=== PATIENT | male | born 1960 | race Caucasian/White ===

== ENCOUNTER → 2016-11-08 | Outpatient (CLI) | payer BC ==
[~2016-11-08] MED LIST: ASCO10007 PO; CHOL100055 PO; CYAN10009 PO; FLUT16SP EA NOSTRIL; OXYC1TAB8 PO; PRED5TAB PO
== END ==
LOC: IMA.BED 08:00
PROVIDERS: ATTEND Radiology Diagnostic Radiology
DX: Z53.8 Procedure and treatment not carried out for other reasons (principal)

== ENCOUNTER → 2016-12-03 | Outpatient (CLI) | payer BC ==
[~2016-12-03] MED LIST changes: -OXYC1TAB8 PO
--- NOTE | 2016-12-03 15:22 | DI ---
Indication: ITS.REASON: R91.8 Other nonspecific abnormal finding of lung field PROCEDURE: CT CHEST/ABDOMEN/PELVIS W/O: Encounter: Subsequent Comparison: CT chest dated November 05, [address] abdomen/pelvis dated October 24, 2016 Technique: Axial CT images were performed through the chest, abdomen and pelvis without intravenous contrast. Coronal and sagittal two-dimensional reformats. Automated Exposure Control and Iterative Reconstruction dose reducing techniques were utilized. Findings: Chest: Multifocal pulmonary nodules are again seen and unchanged. Several of these appear semisolid with airways traversing through the center of the nodules. No measurable change in the nodule sizes. No new or enlarging nodules. No pneumonia, pleural effusion or pneumothorax. The central airways are patent. No axillary or mediastinal adenopathy by CT criteria. Stable small paratracheal nodes. Heart size is normal. No pericardial effusion. Abdomen/pelvis: Diffuse fatty infiltration of the liver. Rim calcified gallbladder again noted. The spleen, pancreas and adrenal glands are within normal limits. The kidneys are unchanged. Bladder is normal. Prostate and rectum are within normal limits. No free fluid. No evidence of a bowel obstruction. No mesenteric, retroperitoneal or pelvic adenopathy. Bone windows are unchanged. Impression: Stable exam with numerous randomly distributed groundglass and semisolid nodules throughout both lungs. .
== END ==
LOC: IMA 12:32
PROVIDERS: ATTEND Internal Medicine Hematology & Oncology
DX: R91.8 Other nonspecific abnormal finding of lung field (principal); K76.0 Fatty (change of) liver, not elsewhere classified

== ENCOUNTER 2016-12-15 08:44 | Day surgery (SDC) | payer BC ==
--- NOTE | 2016-11-23 15:37 | NUR ---
PMH, allergies, meds reviewed and documented. Preop and DOS instructions given. Patient has been given CHG soap with instructions for use preop.
[~2016-12-15] VITALS: Ht 182.9 cm; Wt 113.5 kg
[2016-12-15] VITALS (34 sets, daily range): BP systolic 111–172; BP diastolic 56–98; PULSE 56–89; RESP 8–19; TEMP 96.8–97.9; O2SAT 90–98; Ht 182.9 cm; Wt 113.5 kg
[~2016-12-15 08:44] MED LIST changes: +LIDOCAINE 1% (10mg/ml) 2ml SDV INJ ONE; +LR 1,000 ML IV SCH
--- OUTSIDE RECORDS SUMMARY | 2016-12-15 08:48 | XMS REPORT | Continuity of Care Document ---
Author Author [facility] Organization [facility] Address Unknown Phone Unavailable Support Name Relationship Address Phone JAN HARRIS MD Caregiver [address] [place] [id number] Unavailable MILENA COHN Next Of Kin [address] [place], [place] [phone] Insurance Providers Guarantor Anatoliy Cohn Address [address] [place] [address] Email [email or web address] Payer [facility] Policy Number [id number] Subscriber's Name Anatoliy Cohn Relationship 18 Self Group Number [id number] Chief Complaint and Reason for Visit Chief Complaint Flank Pain Reason for Visit [id number] Problems Past Problems Medical Problem Onset Date Left nephrolithiasis Unknown Pulmonary nodules Unknown Medications Current Home Medications Medication Dose Units Route Directions Days Qty Instructions Start Date Acetaminophen/Hydrocodone Bitart ([place] 10-325 Tablet) 10-325 Tablet 1 Tab Oral Every 4 Hours as needed for Pain 30 Tablet 10/24/16 Ascorbic Acid (Vitamin C) 1,000 Mg Tablet 2,000 Mg Oral Daily Cholecalciferol (Vitamin D3) (Vitamin D) 1,000 Unit Capsule 1,000 Unit Oral Daily 10/24/16 Cyanocobalamin (Vitamin B-12) (Vitamin B-12) 1,000 Mcg Tablet 1,000 Mcg Oral Daily 10/24/16 D-Methorphan/Acetamin/Doxylamn (Night Time Cold & Flu Liquid) 237 Ml Liquid 1 Dose Oral Bedtime as needed for Cold Symptoms 10/24/16 Prednisone 5 Mg Tablet 5 Mg Oral Daily as needed for Gout Pain Tamsulosin Hcl (Flomax) 0.4 Mg Capsule 0.4 Mg Oral Bedtime 30 Capsule Take 1 capsule, by mouth, one time a day at BEDTIME. 10/24/16 Social History Social History Problem Response Recorded Date/Time Onset Date Status Hx Alcohol Use No 10/24/2016 6:40am Not Applicable Not Applicable Query Response Start Date Stop Date Smoking Status Former smoker Hospital Discharge Instructions No hospital discharge instructions. Plan of Care Discharge Date 10/24/16 10:47am Disposition 01 DISCHARGED HOME, SELF-CARE Condition at Discharge Improved Prescriptions See Medication Section Functional Status No functional status results. Allergies, Adverse Reactions, Alerts Allergen Type Severity Reaction Status Last Updated Penicillin Allergy Unknown Active 10/24/16 Immunizations No immunization records. Vital Signs Acute Vital Signs Vital Response Date/Time Temperature (Fahrenheit) 97.6 deg F (96.8 - 99.1) 10/24/2016 10:47am Temperature (Calculated Celsius) 36.99947 degrees C (36.0 - 37.3) 10/24/2016 10:47am Pulse Rate (adult) 59 bpm (60 - 100) 10/24/2016 10:47am Respiratory Rate 18 breaths/min (10 - 20) 10/24/2016 10:47am O2 Sat by Pulse Oximetry 96 % (90 - 100) 10/24/2016 10:47am Blood Pressure 156/76 mm Hg 10/24/2016 10:47am Height (Feet) 5 feet 10/24/2016 6:32am Height (Inches) 11.00 inches 10/24/2016 6:32am Weight (Kilograms) 111.700 kg 10/24/2016 6:32am Body Mass Index (BMI) 34.0 10/24/2016 6:32am Results Laboratory Results Test Name Result Units Flags Reference Collection Date/Time Result Date/ Time Comments White Blood Count 10.3 T/MM3 4.5-11.0 10/24/2016 6:43am 10/24/2016 6: 57am Red Blood Count 5.25 M/MM3 4.50-5.90 10/24/2016 6:43am 10/24/2016 6: 57am Hemoglobin 15.8 GM/DL 13.5-17.5 10/24/2016 6:43am 10/24/2016 6:57am Hematocrit 45.8 % 41-53 10/24/2016 6:43am 10/24/2016 6:57am Mean Corpuscular Volume 87.2 UM3 80-100 10/24/2016 6:43am 10/24/2016 6: 57am Mean Corpuscular Hemoglobin 30.1 UUG 26-34 10/24/2016 6:43am 2016 6:57am Mean Corpuscular Hemoglobin Concent 34.5 GM/DL 31-37 10/24/2016 6:43am 10/24/2016 6:57am RDW Standard Deviation 42.5 FL 36.9-50.2 10/24/2016 6:43am 10/24/2016 6 :57am Platelet Count 220 T/MM3 130-400 10/24/2016 6:43am 10/24/2016 6:57am Mean Platelet Volume 10.4 UM3 9.4-12.4 10/24/2016 6:43am 10/24/2016 6: 57am Neutrophils (%) (Auto) 52.3 % 33-66 10/24/2016 6:43am 10/24/2016 6: 57am Lymphocytes (%) (Auto) 33.4 % 23-45 10/24/2016 6:43am 10/24/2016 6: 57am Monocytes (%) (Auto) 8.0 % 0-9.0 10/24/2016 6:43am 10/24/2016 6:57am Eosinophils (%) (Auto) 4.5 % H 0-4 10/24/2016 6:43am 10/24/2016 6:57am Basophils (%) (Auto) 0.4 % 0-2 10/24/2016 6:43am 10/24/2016 6:57am Immature Granulocyte % (Auto) 1.4 % H 0.0-0.5 10/24/2016 6:43am 2016 6:57am Absolute Neutrophils (auto) 5.4 T/MM3 1.8-7.7 10/24/2016 6:43am 2016 6:57am Absolute Lymphocytes (auto) 3.4 T/MM3 1-4.8 10/24/2016 6:43am 2016 6:57am Absolute Monocytes (auto) 0.8 T/MM3 0-0.8 10/24/2016 6:43am 10/24/2016 6:57am Absolute Eosinophils (auto) 0.5 T/MM3 0-0.5 10/24/2016 6:43am 2016 6:57am Absolute Basophils (auto) 0.0 T/MM3 0-0.2 10/24/2016 6:43am 10/24/2016 6:57am Absolute Immature Granulocyte (auto 0.14 T/MM3 H 0.00-0.03 10/24/2016 6: 43am 10/24/2016 6:57am Icterus Index < 2 0-7 10/24/2016 6:43am 10/24/2016 7:02am Chemistry Specimen Hemolysis < 15 0-25 10/24/2016 6:43am 10/24/2016 7 :02am 0-25: Specimen Exhibited No Hemolysis. Turbidity < 20 0-20 10/24/2016 6:43am 10/24/2016 7:02am Sodium Level 139 MEQ/L 134-144 10/24/2016 6:43am 10/24/2016 7:02am Potassium Level 4.1 MEQ/L 3.6-5 10/24/2016 6:43am 10/24/2016 7:02am Chloride Level 105 MEQ/L 98-107 10/24/2016 6:43am 10/24/2016 7:02am Carbon Dioxide Level 24 MEQ/L 22-30 10/24/2016 6:43am 10/24/2016 7: 02am Anion Gap 10 MEQ/L 5-15 10/24/2016 6:43am 10/24/2016 7:02am Blood Urea Nitrogen 22.0 MG/DL H 9-20 10/24/2016 6:43am 10/24/2016 7: 02am Creatinine 1.4 MG/DL 0.8-1.5 10/24/2016 6:43am 10/24/2016 7:02am BUN/Creatinine Ratio 16 RATIO 6-10/24/2016 6:43am 10/24/2016 7:02am Glomerular Filtration Rate Calc 53 10/24/2016 6:43am 10/24/2016 7: 02am Glucose Level 132 MG/DL H 75-110 10/24/2016 6:43am 10/24/2016 7:02am Calculated Osmolality 273 MOSM/KG 261-280 10/24/2016 6:43am 10/24/2016 7:02am Calcium Level 8.7 MG/DL 8.4-10.2 10/24/2016 6:43am 10/24/2016 7:02am Total Bilirubin 0.80 MG/DL 0.20-1.30 10/24/2016 6:43am 10/24/2016 7: 02am Alkaline Phosphatase 90 U/L 38-126 10/24/2016 6:43am 10/24/2016 7:02am Total Protein 7.2 G/DL 6.3-8.2 10/24/2016 6:43am 10/24/2016 7:02am Albumin 4.0 G/DL 3.5-5.0 10/24/2016 6:43am 10/24/2016 7:02am Globulin 3.2 G/DL 2.4-3.6 10/24/2016 6:43am 10/24/2016 7:02am Albumin/Globulin Ratio 1.3 RATIO 1.1-2.2 10/24/2016 6:43am 10/24/2016 7 :02am Aspartate Amino Transf (AST/SGOT) 35 U/L 17-59 10/24/2016 6:43am 2016 7:02am Alanine Aminotransferase (ALT/SGPT) 71 U/L 21-72 10/24/2016 6:43am 7:02am Lipase 89 U/L 23-300 10/24/2016 6:43am 10/24/2016 7:02am Urine Collection Type VOIDED-NOT CC-MIDSTR 10/24/2016 7:142016 7:24am Urine Color YELLOW YELLOW 10/24/2016 7:14am 10/24/2016 7:24am Urine Turbidity CLEAR CLEAR 10/24/2016 7:1410/24/2016 7:24am Urine Specific [place] >=1.030 H 1.015-1.025 10/24/2016 7:142016 7:24am Urine pH 5.0 5.0-8.0 10/24/2016 7:14am 10/24/2016 7:24am Urine Leukocyte Esterase NEGATIVE NEGATIVE 10/24/2016 7:14am 2016 7:24am Urine Nitrite NEGATIVE NEGATIVE 10/24/2016 7:14am 10/24/2016 7:24am Urine Protein TRACE A NEGATIVE 10/24/2016 7:14am 10/24/2016 7:24am Urine Glucose (UA) NEGATIVE NEGATIVE 10/24/2016 7:14am 10/24/2016 7: 24am Urine Ketones NEGATIVE NEGATIVE 10/24/2016 7:14am 10/24/2016 7:24am Urine Urobilinogen 0.2 EU/DL NORMAL 10/24/2016 7:14am 10/24/2016 7: 24am Urine Bilirubin NEGATIVE NEGATIVE 10/24/2016 7:14am 10/24/2016 7: 24am Urine Blood NEGATIVE NEGATIVE 10/24/2016 7:14am 10/24/2016 7:24am Urinalysis Comment MICROSCOPIC NOT IND. 10/24/2016 7:14am 2016 7:24am Name: ANATOLIY COHN Unit #: [id number] : 1960 Sex: M Admit Date: Loc / Svc: ED Discharge Date: DIAGNOSTIC IMAGING REPORT Report #: [id number] [facility] SELMA Venegas Indication: ITS.REASON: flank pain left PROCEDURE: CT ABD/PELVIS W/O CONTRAST: Encounter: Initial Comparison: None Technique: Axial CT images were performed through the abdomen and pelvis without intravenous contrast. Coronal and sagittal two-dimensional reformats. Automated Exposure Control and Iterative Reconstruction dose reducing techniques were utilized. Findings: Irregular nodules seen in both lower lobes, right middle lobe and lingula. Liver is diffusely severely fatty infiltrated. Wall calcifications in the gallbladder. The spleen, pancreas and adrenal glands are within normal limits. Right kidney is normal. Left kidney shows mild hydronephrosis and hydroureter due to an obstructing 3 mm stone in the intramural portion of the ureter at the bladder. Bladder is totally decompressed. Prostate is unremarkable. No free fluid or evidence of a bowel obstruction. No adenopathy seen in the abdomen or pelvis. Mild degenerative change in the spine. Impression: 1. 3 mm obstructing left distal ureteral stone in the bladder. 2. Multifocal pulmonary nodules in the lungs could be due to metastases or infection such as septic emboli or fungal. Recommend dedicated chest CT for more complete evaluation. 3. Severe hepatic steatosis. 4. Partially porcelain gallbladder. There is a preliminary report by [facility]. . Procedures No known history of procedures. Encounters Encounter Location Arrival/Admit Date Discharge/Depart Date Attending Provider Departed Emergency Room [facility] 10/24/16 6:29am 10/24/16 10: 47am JAN HARRIS MD Recent Diagnosis
[2016-12-15] MEDS ORDERED: PROPOFOL 500mg 50 ML IV ONE (09:19)
[2016-12-15] MEDS ORDERED: LIDOCAINE 2% (20mg/ml) 5ml PF SDV ONE (09:19)
[2016-12-15] MEDS ORDERED: DEXAMETHASONE 4mg/ml - 1ml INJECTION ONE (09:20)
[2016-12-15] MEDS ORDERED: GLYCOPYRROLATE 0.4mg/2ml INJECTION ONE (09:20)
[2016-12-15] MEDS ORDERED: KETOROLAC 30mg/ml INJECTION ONE (09:20)
[2016-12-15] MEDS ORDERED: NEOSTIGMINE 10mg/10ml INJECTION ONE (09:20)
[2016-12-15] MEDS ORDERED: ONDANSETRON 4mg/2ml INJECTION ONE (09:20)
[2016-12-15] MEDS ORDERED: ROCURONIUM 50mg/5ml INJECTION IV ONE ×2 (09:20→11:17)
[2016-12-15] MEDS ORDERED: KETAMINE 500mg/10ml INJECTION ONE (09:26)
[2016-12-15] MEDS ORDERED: MIDAZOLAM 2mg/2ml INJECTION ONE (10:24)
[2016-12-15] MEDS ORDERED: FENTANYL 100mcg/2ml INJECTION ONE (10:24)
[2016-12-15] MEDS ORDERED: IOHEXOL 300 MG/ML 50ml INJECTION ONE (10:42)
[2016-12-15] MEDS ORDERED: LIDOCAINE 1%/EPI 1:100,000 20ml MDV ONE (10:42)
[2016-12-15] MEDS ORDERED: BUPIVACAINE 0.25% (2.5mg/ml) INJ 30ml SDV ONE (10:42)
[2016-12-15] MEDS ORDERED: DiphenhydrAMINE 50 MG/ML INJECTION ONE (10:51)
[2016-12-15] MEDS ORDERED: HYDROMORPHONE 2mg/ml INJECTION ONE (13:42)
--- NOTE | 2016-12-15 14:02 | DI ---
Indication: ITS.REASON: LAP WILLIAM PROCEDURE: RF CHOLANGIOGRAM OPERATIVE: Comparison: None Findings: 4 fluoroscopic spot images are submitted from an intraoperative cholangiogram. Images demonstrate injection of contrast into the cystic duct with filling of the common duct and intrahepatic biliary tree. No discrete filling defects are identified. Contrast flows into the duodenum. Impression: Intraoperative fluoroscopy as above. Please refer to the dictated operative note for further details. Fluoroscopy time is 29 seconds. Fluoroscopy dose is 1240 mRad. .
--- NOTE | 2016-12-15 14:27 | GSPOSTPROC ---
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
[2016-12-15] MEDS ORDERED: OXYC1TAB8 PO (14:28)
[2016-12-15] MEDS ORDERED: METOCLOPRAMIDE 10mg/2ml INJECTION IV PRN (14:30)
[2016-12-15] MEDS ORDERED: HYDROMORPHONE 2mg/ml INJECTION IV PRN (14:30)
[2016-12-15] MEDS ORDERED: ONDANSETRON 4mg/2ml INJECTION IV PRN (14:30)
[2016-12-15] MEDS ORDERED: KETOROLAC 30mg/ml INJECTION IV PRN (14:30)
--- NOTE | 2016-12-15 15:26 | ANESPREOP ---
Anesthesia Record Date and Time DATE: 12/15/16 TIME: 1000 Proposed Surgical Procedure LAP WILLIAM WITH GMS Allergies: Coded Allergies: Penicillins (Verified Allergy, Unknown, 12/15/16) codeine (Verified Adverse Reaction, Unknown, STOMACHE CRAMPS, 12/15/16) Ht/Wt/BMI Height: 6 ' 0.00 " Weight: 110.100 kg BMI: 32.9 kg/m2 Vital Signs Date Time Temp Pulse Resp B/P Pulse Ox O2 Delivery O2 Flow Rate FiO2 12/15/16 14:40 65 16 130/66 93 Nasal Cannula 4.00 12/15/16 14:16 97.7 Medications Inpatient Medications Current Medications Medications (Trade) Dose Ordered Sig/Salo Start Time Stop Time Status Last Admin Dose Admin Lactated Ringer's 1,000 ml @ 125 mls/hr Q8H 12/15/16 07:00 12/15/16 14:35 DC 12/15/16 09:27 125 MLS/HR Lactated Ringer's (Lactated Ringers) 1,000 ml @ 75 mls/hr [id number] 12/15/16 14:19 Oxycodone/ Acetaminophen (Percocet 5/325) 1-2 tabs PO Q4H PRN PAIN Q4H PRN 12/15/16 14:30 Ketorolac Tromethamine (Toradol) 30 mg Q6H PRN 12/15/16 14:30 Hydromorphone HCl (Dilaudid) 0.2-1 MG IV Q1H PRN PAIN Q1H PRN 12/15/16 14:30 Metoclopramide HCl (REGLAN Inj) 10 mg Q6H PRN 12/15/16 14:30 Ondansetron HCl (Zofran) 4 mg Q6H PRN 12/15/16 14:30 Ascorbic Acid (Vitamin C) 1,000 Mg Tablet, 1,000 MG PO DAILY, (Reported) Last Taken: on 12/12/16 0800 Cholecalciferol (Vitamin D3) (Vitamin D) 1,000 Unit Capsule, 1,000 UNIT PO DAILY, (Reported) Last Taken: on Unknown Date & Time Cyanocobalamin (Vitamin B-12) (Vitamin B -12) 1,000 Mcg Tablet, 1,000 MCG PO DAILY, (Reported) Last Taken: on 12/14/16 0800 Fluticasone Propionate (Fluticasone Prop 50 mcg /actuation Nasal [place]) 120 [place]/16 G [place], 2 SPRAY EA NOSTRIL DAILY PRN for ALLERY SYMPTOMS, (Reported) Last Taken: on Unknown Date & Time Oxycodone HCl/Acetaminophen (Percocet 5- 325 mg Tablet) 5-325 Tablet, 1-2 TAB PO Q4H PRN for PAIN Prednisone (Prednisone) 5 Mg Tablet, 5-10 MG PO DAILY PRN for GOUT PAIN, ( Reported) Last Taken: on 11/29/16 0800 Currently on Beta Darryn: No Medical/Surgical History Anesthesia PMH: Reports: Arthritis (ANKLES), Reflux, Denies: *Diabetes, Anesthesia Reactions, Glaucoma, Malignant Hyperthermia, Sleep Apnea, Thyroid Disease Smoking Status: Former smoker Has pt. smoked today?: No Use Chewing Tobacco?: No Substance Use Type: does not use Alcohol Intake: none Past Surgical History Orthopedic Surgeries: Abdominal Surgeries: Yes - APPY Genitourinary Surgeries: Cardiac Surgeries: Endocrine Surgeries: Reproductive Surgeries: Neurological Surgeries: Ear Surgeries: Nose Surgeries: Throat Surgeries: Yes - TONSILLECTOMY Other Surgeries: Anesthesia Adverse Reactions: FOUND none Family Hx of Anesthesia Advers: none Hx of Motion Sickness: No Physical Exam Respiratory: Lungs clear Cardiovascular: FOUND Regular rate, rhythm Airway Assessment Mallampati Score: II TMD: 3 Fingerbreadths Neck Extension: Good Overall Assessment: No Airway Concerns ASA: 2 Plan Anesthesia Plan: GETA Discussion Discussed risks/options/alternatives of anesthesia and questions answered. Patient consents. Nursing pain assessment noted. Present: Family Member Attestation Statement Prior to the delivery of any anesthetic medication, I examined the patient, developed the plan, obtained the patient's consent and discussed the risk and benefits of the procedure with the patient/guardian. JACKIE DYSON CRNA Dec 15, 2016 15:26
--- NOTE | 2016-12-15 15:27 | ANESPO ---
Post-Op Note Date 12/15/16 Time: 15:26 Status Pt Participated in Evaluation: Pt participated in person Vital Signs Date Time Temp Pulse Resp B/P Pulse Ox O2 Delivery O2 Flow Rate FiO2 12/15/16 14:40 65 16 130/66 93 Nasal Cannula 4.00 12/15/16 14:16 97.7 Respiratory Function: Airway patent Cardiovascular Function: Regular pulse Mental Status: Alert/oriented Pain Level Intensity: 0 Hydration: Taking po fluids Complications during Recovery None apparent Follow-Up Instructions Instructions Per Surgeon JACKIE DYSON CRNA Dec 15, 2016 15:27
[2016-12-15] MEDS: LR 1,000 ML IV SCH (15:35)
--- NOTE | 2016-12-15 15:42 | NUR ---
To floor Pt transferred self from cart to bed at this time. VS stable on 2L NC. Pt denies nausea at this time and rates pain a 2/10. Family present in room at time of transfer. Side rails up X2, call light w/in reach, bed alarm on.
[2016-12-15] MEDS: OXYCODONE/APAP 5mg/325mg TABLET PO PRN (16:15)
--- NOTE | 2016-12-15 19:02 | NUR ---
Summary Pt A&OX3. Pt came to floor on 2L NC, titrated down to RA. Pt has ambulated in the hallway and up to the recliner at this time eating dinner. Chair alarm on, call light w/in reach. Pt has denied nausea. Pt given PRN pain medication for pain control. Family present in the room. THALIA drain in place. Pt states he wants to discharge home this evening.
--- NOTE | 2016-12-15 20:17 | NUR ---
PROVIDER NOTIFICATION Contacted Dr. Wells to notify that patient has had only one postop void of 10mL, otherwise criteria met. Dr. Wells directed to continue watching patient overnight to ensure adequate output prior to release. Will continue to monitor.
[2016-12-16] MEDS: OXYCODONE/APAP 5mg/325mg TABLET PO PRN ×2 (01:20→06:48)
[2016-12-16 04:11] VITALS: BP 125/66; PULSE 62; RESP 18; TEMP 96.9; O2SAT 93
[2016-12-16] MEDS: LR 1,000 ML IV SCH (04:19)
--- NOTE | 2016-12-16 05:45 | NUR ---
SHIFT SUMMARY PATIENT IS ALERT AND ORIENTED X3 THIS SHIFT. VITAL SIGNS HAVE BEEN STABLE ON ROOM AIR. PATIENT HAS REPORTED SOME PAIN THIS SHIFT, BUT IT HAS BEEN MANAGED WITH PO PAIN MEDS. PATIENT HAS BEEN UP AT [facility] THIS SHIFT WITHOUT DIFFICULTY. DRESSINGS ARE DRY AND INTACT. PATIENT WAS SCHEDULED TO GO HOME EARLY IN SHIFT, BUT HAD MINIMAL OUTPUT SO WAS KEPT OVER NIGHT. PATIENT HAS VOIDED SEVERAL TIMES SINCE, SO HE SHOULD BE ABLE TO GO HOME THIS AM. WILL CONTINUE TO MONITOR.
[2016-12-16 07:51] VITALS: BP 149/67; PULSE 64; RESP 16; TEMP 97.2; O2SAT 96
[2016-12-16 07:52] VITALS: PULSE 64; RESP 16
--- NOTE | 2016-12-16 08:49 | NUR ---
Discharge Pt discharged at this time via ambulatory status through the ER entrance in the [place] of iodine. IV catheter DC'd, catheter tip intact. Pt A&OX3. VS stable on RA. Discharge instructions gone over with Pt. This RN discussed medications, activity, restrictions, diet, drain management and care, and follow up appt with Pt. Drain teaching and care performed with Pt prior to discharge. Supplies and drain record sheet sent home with Pt for THALIA drain. Prescription for Percocet sent with Pt to take to preferred pharmacy. Pt had no further questions at this time.
--- NOTE | 2016-12-16 09:27 | OPNOTEF ---
DATE OF OPERATION 12/15/2016 SURGEON Thom Wells MD PREOPERATIVE DIAGNOSIS Porcelain gallbladder. POSTOPERATIVE DIAGNOSIS Porcelain gallbladder - suspected chronic cholecystitis but final pathology is pending. PROCEDURE Laparoscopic cholecystectomy with intraoperative cholangiogram. ANESTHESIA General. ASA CLASS 2 INDICATIONS The patient is a 56-year-old male who had a partially porcelain gallbladder identified on imaging when he was discovered to have multiple lung nodules. The lung nodules were small and scattered to where CT-guided biopsy was not feasible. Because of the abnormality of his gallbladder, it was felt that he should have cholecystectomy to see if there were any a cancerous process. FINDINGS The gallbladder was significantly contracted and intrahepatic in position. The liver showed no lesions but did appear slightly more yellow than typical with a rounded edge and firmness consistent with fatty liver. Intraoperative cholangiogram was normal. There were some adhesions in the right lower quadrant beneath his prior paramedian appendectomy incision. DESCRIPTION OF PROCEDURE After informed consent was obtained, the patient was taken to the operating room and placed in supine position. General endotracheal anesthesia was administered. The patient's abdomen was then prepped and draped in usual sterile fashion. Local was used to anesthetize the skin beneath the umbilicus. The skin incision was made with an 11-blade scalpel and the base of the umbilicus was elevated with a penetrating towel clip. A Veress needle was inserted and was used to obtain pneumoperitoneum. A 5 mm port was then placed followed by an angled laparoscope. The laparoscope was used to guide placement of two additional 5-mm ports in the right upper quadrant and a 10 mm port in the subxiphoid region. All of these ports were placed under direct vision after the skin and fascia were anesthetized with local. With ports in position, attempts to create traction on the fundus of the gallbladder were made, however the gallbladder was too contracted and firm to allow grasping with a Pean clamp. The clamp was used to place pressure directly on the gallbladder to try to retract it more superiorly. It was well below the inferior edge of the liver and slightly intrahepatic which made dissection much more difficult. The peritoneum overlying the infundibulum was divided with cautery and careful blunt dissection was performed beyond the infundibulum using a [place] dissector, Pean clamp, and the suction regional airline pilot tip. Gradually and with tedious careful dissection the cystic duct and cystic artery were able to be dissected free. A formal critical view of safety was not able to be achieved due to lack of mobility of the gallbladder and inability to retract the gallbladder inferiorly and laterally. The suction regional airline pilot did pass behind a single duct leading from the gallbladder and there was a single pulsatile structure in the area of the assumed cystic artery. With this level of identification, a clip was placed on the presumed cystic artery and the cystic duct and a small ductotomy was created. There was return of bile. A cholangiogram catheter was threaded into position and held in place with a cholangiogram clamp. Intraoperative cholangiogram was performed and was normal with good filling of the common bile duct, common hepatic duct, right and left hepatic ducts, and flow into the duodenum. No filling defects were noted. The cholangiogram catheter was then removed. Three additional clips were placed distally on the cystic duct and two more clips placed on the cystic artery. The cystic artery was divided between the two distal clips and cystic duct between the two proximal clips. With division of these structures, additional dissection was able to be performed beneath the posterior aspect of the infundibulum. Dissection was then too difficult given the continued lack of ability to create traction on the gallbladder or retract the liver superiorly, so the dissection was performed from a dome-down approach back to the prior area of dissection. Given the significant inflammation, some of the dissection was performed into the parenchyma of the liver. After removal of the gallbladder, there was one area that appeared to have some venous bleeding. This was controlled with a hemoclip. The gallbladder was then placed within a retrieval bag and was removed from the subxiphoid port site which did require extension of the skin incision to deliver the gallbladder as well as stretching of the fascial layer. With the specimen removed, it was sent to pathology. The port was replaced and the skin was temporarily closed with a penetrating towel clip. The right upper quadrant was then irrigated copiously with two liters of saline and suctioned free of fluid. There was possible additional bile flow from within the gallbladder fossa, so two additional hemoclips were placed in the area and this did seem to stop flow of bile. Hemostasis within the gallbladder fossa was assured. Because of possible bile leak and significant inflammation, it was felt that a drain should be left in position. This was threaded through the subxiphoid port site and out the right-most port site. The drain was secured to the skin with a 2-0 Prolene suture. It had been trimmed to an appropriate length and was tucked underneath the liver passing through the gallbladder fossa. The remainder of the abdominal cavity had been explored visually with the laparoscope and no other abnormalities were seen on the visualized surfaces. The other right upper quadrant port was removed under direct vision. Pneumoperitoneum was evacuated and the umbilical port was removed. The fascia of the subxiphoid port site had been closed with 0 Vicryl suture with an interrupted stitch as well as a [id number] stitch. All of the skin incisions were closed with skin vivian except for the drain exit site. Sterile Band-Aids were applied along with a drain sponge. The drain was connected to bulb suction and had minimal output. The patient tolerated the procedure well. He was awakened and transferred to the recovery area in stable condition. [facility]
== END 2016-12-16 08:49 | disposition home or self-care (01) ==
LOC: SCU 08:44 → SRG 08:45 → SCU 12-16 08:49
PROVIDERS: ATTEND Surgery
DX: K80.10 Calculus of gallbladder with chronic cholecystitis without obstruction (principal); K82.8 Other specified diseases of gallbladder; I89.8 Other specified noninfective disorders of lymphatic vessels and lymph nodes; R91.8 Other nonspecific abnormal finding of lung field; K66.0 Peritoneal adhesions (postprocedural) (postinfection); Z87.442 Personal history of urinary calculi; F32.9 Major depressive disorder, single episode, unspecified; M10.9 Gout, unspecified; F17.290 Nicotine dependence, other tobacco product, uncomplicated; Z79.899 Other long term (current) drug therapy; Z79.52 Long term (current) use of systemic steroids
CPT/HCPCS: 47563; 74300; J1100; J1170; J1200; J1885; J2250; J2405; J2704; J2710; J3010; J7030; J7120; Q9967; S0020

== ENCOUNTER → 2017-01-03 | Outpatient (CLI) | payer BC ==
[~2017-01-03] VITALS: Ht 177.8 cm; Wt 110.0 kg
[~2017-01-03] MED LIST changes: -LIDOCAINE 1% (10mg/ml) 2ml SDV INJ ONE; -LR 1,000 ML IV SCH; +OXYC1TAB8 PO
== END ==
LOC: RC 11:53
PROVIDERS: ATTEND Internal Medicine Hematology & Oncology
DX: D86.0 Sarcoidosis of lung (principal); D86.89 Sarcoidosis of other sites; R94.2 Abnormal results of pulmonary function studies
CPT/HCPCS: 94060; 94726